=== PATIENT | male | born 1995 | race Caucasian/White ===

== ENCOUNTER 2017-12-21 04:17 | Inpatient (IN) | payer SELFPAY ==
[~2017-12-21] VITALS: Ht 162.6 cm; Wt 53.5 kg
--- NOTE | 2017-12-21 04:28 | ER Report ---
History and Physical Time Seen By MD: 04:28 Hx. of Stated Complaint: 0130 woke up with abd pain, vomiting. HPI/ROS CHIEF COMPLAINT: abdominal pain HISTORY OF PRESENT ILLNESS: Awoke at 0130 with abdominal pain and nausea. Pain is diffuse, but worse in the periumbilical and epigastric areas. Pain does not radiate. No back pain. Feels a little distended. Two episodes of vomiting tonight, felt a little better between episodes of emesis. Normal urination. History of ulcerative colitis with a total colectomy and a J-pouch. Usually multiple bowel movements daily, no bowel movement since yesterday (normally has about 5-6 a day and wakes up at least once at night). No fevers or chills. Had a cold a few weeks ago, otherwise no recent illnesses. REVIEW OF SYSTEMS: Constitutional: As above. Eyes: No discharge. ENT: No sore throat. No congestion. Cardiovascular: No chest pain. No palpitations. Respiratory: No cough. No shortness of breath. Gastrointestinal: As above. Genitourinary: No dysuria. Musculoskeletal: No back pain. No extremity pain. Skin: No rashes. Neurological: No numbness. No headache. Allergies: Coded Allergies: Sulfa (Sulfonamide Antibiotics) (Verified Adverse Reaction, Severe, hives , 12/21/17) Home Meds No Active Prescriptions or Reported Meds Reviewed Nurses Notes: Yes Hx Smoking: No Constitutional Physical Exam General Appearance: The patient is alert. No acute distress. Eyes: Pupils are equal, round. No pallor, injection or icterus. ENT: Mucous membranes are moist. Normal oral mucosa. Posterior oropharynx is normal. Respiratory: Lungs are clear to auscultation. Cardiovascular: Regular rate and rhythm. No murmurs, gallops or rubs. No edema. Gastrointestinal: Abdomen has diffuse tenderness, worse at francisca-umbilical area. While patient feels distended, I can not really appreciate any distension. Guarding, but no rebound. Hypoactive bowel sounds. Has some left CVA tenderness with percussion. Neurological: Alert and oriented x3. No focal neurologic deficits Skin: Warm and dry. Musculoskeletal: No tenderness in palpation of the thoracic and lumbar spine. DIFFERENTIAL DIAGNOSIS: After history and physical exam, differential diagnosis was considered for abdominal pain including but not limited to bowel obstruction , inflammatory disease, enteritis, gastritis and urinary tract infection. Medical Decision Making Data Points Result Diagram: 12/24/17 0526 12/24/17 0526 Laboratory Hematology Test 12/21/17 04:28 Urine Color Yellow Urine Clarity Slightly-cloudy Urine pH 8.0 pH (4.8-9.5) Urine Specific [place] 1.020 Urine Protein Negative mg/dL (NEGATIVE) Urine Glucose (UA) Negative mg/dL (NEGATIVE) Urine Ketones Negative mg/dL (NEGATIVE) Urine Blood Negative (NEGATIVE) Urine Nitrite Negative (NEGATIVE) Urine Bilirubin Negative (NEGATIVE) Urine Urobilinogen Negative mg/dL (0.2-1.9) Urine Leukocyte Esterase Negative (NEGATIVE) Urine RBC None /HPF (0-2/HPF) Urine WBC 2 /HPF (0-5/HPF) Urine Squamous Epithelial Cells Few /LPF (</=FEW) Urine Amorphous Crystals Few /HPF Urine Bacteria Negative /HPF (NONE-FEW) Urine Mucus None /HPF (NONE-FEW) Total Bilirubin 0.5 mg/dl (0.2-1.3) Aspartate Amino Transf (AST/SGOT) 34 U/L (0-35) Alanine Aminotransferase (ALT/SGPT) 31 U/L (0-56) Alkaline Phosphatase 114 U/L (0-126) Total Protein 7.2 gm/dl (6.3-8.2) Albumin 4.0 g/dl (3.5-5.0) Amylase Level 90 U/L (0-110) Lipase 82 U/L (23-300) Chemistry Test 12/21/17 04:28 Urine Color Yellow Urine Clarity Slightly-cloudy Urine pH 8.0 pH (4.8-9.5) Urine Specific [place] 1.020 Urine Protein Negative mg/dL (NEGATIVE) Urine Glucose (UA) Negative mg/dL (NEGATIVE) Urine Ketones Negative mg/dL (NEGATIVE) Urine Blood Negative (NEGATIVE) Urine Nitrite Negative (NEGATIVE) Urine Bilirubin Negative (NEGATIVE) Urine Urobilinogen Negative mg/dL (0.2-1.9) Urine Leukocyte Esterase Negative (NEGATIVE) Urine RBC None /HPF (0-2/HPF) Urine WBC 2 /HPF (0-5/HPF) Urine Squamous Epithelial Cells Few /LPF (</=FEW) Urine Amorphous Crystals Few /HPF Urine Bacteria Negative /HPF (NONE-FEW) Urine Mucus None /HPF (NONE-FEW) Total Bilirubin 0.5 mg/dl (0.2-1.3) Aspartate Amino Transf (AST/SGOT) 34 U/L (0-35) Alanine Aminotransferase (ALT/SGPT) 31 U/L (0-56) Alkaline Phosphatase 114 U/L (0-126) Total Protein 7.2 gm/dl (6.3-8.2) Albumin 4.0 g/dl (3.5-5.0) Amylase Level 90 U/L (0-110) Lipase 82 U/L (23-300) Urinalysis Test 12/21/17 04:28 Urine Color Yellow Urine Clarity Slightly-cloudy Urine pH 8.0 pH (4.8-9.5) Urine Specific [place] 1.020 Urine Protein Negative mg/dL (NEGATIVE) Urine Glucose (UA) Negative mg/dL (NEGATIVE) Urine Ketones Negative mg/dL (NEGATIVE) Urine Blood Negative (NEGATIVE) Urine Nitrite Negative (NEGATIVE) Urine Bilirubin Negative (NEGATIVE) Urine Urobilinogen Negative mg/dL (0.2-1.9) Urine Leukocyte Esterase Negative (NEGATIVE) Urine RBC None /HPF (0-2/HPF) Urine WBC 2 /HPF (0-5/HPF) Urine Squamous Epithelial Cells Few /LPF (</=FEW) Urine Amorphous Crystals Few /HPF Urine Bacteria Negative /HPF (NONE-FEW) Urine Mucus None /HPF (NONE-FEW) EKG/Imaging Imaging Exam type: ACUTE ABDOMEN SERIES 3 VIEW History: Abdominal pain, vomiting Comparison: None. Findings: The lungs are well-expanded and clear. There is no focal consolidation, pleural effusion or pneumothorax. Heart size is normal. Patient appears of had prior bowel surgery. There is a paucity of bowel gas in the right lower quadrant and pelvis with surgical suture. A few air-fluid levels are noted centrally No definite bowel obstruction, pneumatosis or free air. Air is noted overlying the stomach. 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 IMPRESSION: 1. No acute cardiopulmonary disease. 2. Postoperative changes are noted from what appears to be prior bowel surgery in the deep pelvis. There is a paucity of bowel gas in the right lower quadrant and deep pelvis but no bowel obstruction or free air. Report Dictated By: Rafita Lopez MD at 12/21/2017 5:28 AM ABDOMEN/PELVIS WITH CONTRAST HISTORY: Abdominal pain. History of colectomy for ulcerative colitis with J- pouch. COMPARISON: Acute abdominal series earlier same day. TECHNIQUE: Axial images were obtained from the lung bases through the symphysis pubis with intravenous contrast. Sagittal and coronal reformats were performed. One of the following dose optimization techniques was utilized in the performance of this exam: Automated exposure control; adjustment of the mA and/ or kV according to the patient's size; or use of an iterative reconstruction technique. Specific details can be referenced in the facility's radiology CT exam operational policy. CONTRAST: 75 mm IV Isovue-370. FINDINGS: Lower chest: Clear. Liver: There is a 4 mm too small to characterize round low attenuating lesion in segment VII (image 27) and another on image 25 in segment VIII. They are statistically likely to represent benign cysts or hemangiomas. There is ill- defined low attenuating lesions in the inferior right lobe of the liver (axial image 65 and coronal images 49 through 41, potentially focal fatty infiltration. Gallbladder/biliary: Normal. Pancreas: Normal. Spleen: Normal. Adrenals: Normal. Kidneys/ureters/bladder: Normal. GI/mesentery/peritoneal cavity: Colectomy with J-pouch. There is dilation of fluid-filled mid small bowel loops, and there is a small bowel feces sign on image 69. The transition is in the mid abdomen on image 71. Distal small bowel loops are decompressed. There is a small amount of free fluid in the leaves of the mesentery. No free air. There is rectus abdominis diastasis with small bowel loops extending into the defect. There is mild thickening of a segment of bowel in the right lower quadrant on image 88 through 92, just proximal to the anastomosis. Vessels: No aneurysm or significant atherosclerotic disease. No dissection. Nodes: Normal. Pelvis: There is small amount of free fluid, likely reactive secondary to bowel obstruction. Bones/vertebra/soft tissues: S1 is a transitional vertebra. Vertebral body heights are maintained. Alignment is normal. IMPRESSION: 1. Small bowel obstruction with transition in the mid abdomen. There is small amount free fluid in the leaves of the mesentery, likely reactive. 2. There is a loop of bowel in the right lower quadrant just proximal to the anastomosis that is thickened. This is not the site of the obstruction. Bowel wall thickening may be due to infection or inflammation. 3. Irregular low-attenuation in the inferior right lobe of the liver is most likely focal fatty infiltration. More worrisome process is unlikely in a patient of this age. These findings were discussed by phone with SUDHIR NIELSEN on 12/21/2017 6:48 AM. Report Dictated By: Shellie Sloan at 12/21/2017 6:37 AM ED Course/Re-evaluation Clinical Indication for ER IV: Hydration, IV Access ED Course Initially treated with morphine for pain and zofran for nausea. Labs and abdominal series are fairly unremarkable with mild elevation of white blood cell count. CT scan of the abdomen and pelvis was done due to continued pain and suggestion of possible bowel obstruction based on physical exam and history , and does show bowel obstruction. Discussed with the patient and with Dr. Ramirez. NG tube ordered and patient admitted. Decision to Disposition Date: Dec 21, 2017 Decision to Disposition Time: 06:58 Depart Departure Latest Vital Signs Impression: Primary Impression: Small bowel obstruction Condition: Condition Unchanged Disposition: Admitted from ER New Scripts No Active Prescriptions or Reported Meds SUDHIR NIELSEN MD Dec 21, 2017 04:28
[2017-12-21] MEDS ORDERED: ONDANSETRON 4 MG/2 ML VIAL IVP ONE ×2 (04:40→06:55)
[2017-12-21] MEDS ORDERED: MORPHINE 4 MG/ML SDV IVP ONE ×2 (04:40→06:55)
[2017-12-21] MEDS ORDERED: NS(*) 0.9% 1000 ML BAG 1,000 ML IV ONE (04:40)
[2017-12-21 04:45] LABS: PLATELET COUNT, AUTOMATED 383 K/uL (150-450)
--- NOTE | 2017-12-21 05:37 | RADIOLOGY IMAGING REPORT ---
FACILITY: [facility] PATIENT NAME: Jhonatan Nair : 1995 MR: [id number] V: [id number] EXAM DATE: ORDERING PHYSICIAN: SUDHIR NIELSEN TECHNOLOGIST: [place] [facility] [place] Patient: Jhonatan Nair : 1995 Visit/Account:[id number] Date of Sevice: 12/21/2017 Exam type: ACUTE ABDOMEN SERIES 3 VIEW History: Abdominal pain, vomiting Comparison: None. Findings: The lungs are well-expanded and clear. There is no focal consolidation, pleural effusion or pneumotho rax. Heart size is normal. Patient appears of had prior bowel surgery. There is a paucity of bowel gas in the right lower quadra nt and pelvis with surgical suture. A few air-fluid levels are noted centrally No definite bowel obst ruction, pneumatosis or free air. Air is noted overlying the stomach. 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 IMPRESSION: 1. No acute cardiopulmonary disease. 2. Postoperative changes are noted from what appears to be prior bowel surgery in the deep pelvis. Th ere is a paucity of bowel gas in the right lower quadrant and deep pelvis but no bowel obstruction or free air. Report Dictated By: Rafita Lopez MD at 12/21/2017 5:28 AM Report E-Signed By: Rafita Lopez MD at 12/21/2017 5:32 AM WSN:[id number]
[2017-12-21] MEDS ORDERED: IOPAMIDOL 76% 75 ML INFUS BTL 75 ML ONE (06:00)
--- NOTE | 2017-12-21 06:56 | RADIOLOGY IMAGING REPORT ---
FACILITY: [facility] PATIENT NAME: Jhonatan Nair : 1995 MR: [id number] V: [id number] EXAM DATE: ORDERING PHYSICIAN: SUDHIR NIELSEN TECHNOLOGIST: Location: [facility] - [place] Patient: Jhonatan Nair : 1995 Visit/Account:[id number] Date of Sevice: 12/21/2017 ABDOMEN/PELVIS WITH CONTRAST HISTORY: Abdominal pain. History of colectomy for ulcerative colitis with J-pouch. COMPARISON: Acute abdominal series earlier same day. TECHNIQUE: Axial images were obtained from the lung bases through the symphysis pubis with intravenou s contrast. Sagittal and coronal reformats were performed. One of the following dose optimization techniques was utilized in the performance of this exam: Autom ated exposure control; adjustment of the mA and/or kV according to the patient's size; or use of an i terative reconstruction technique. Specific details can be referenced in the facility's radiology CT exam operational policy. CONTRAST: 75 mm IV Isovue-370. FINDINGS: Lower chest: Clear. Liver: There is a 4 mm too small to characterize round low attenuating lesion in segment VII (image 2 7) and another on image 25 in segment VIII. They are statistically likely to represent benign cysts o r hemangiomas. There is ill-defined low attenuating lesions in the inferior right lobe of the liver ( axial image 65 and coronal images 49 through 41, potentially focal fatty infiltration. Gallbladder/biliary: Normal. Pancreas: Normal. Spleen: Normal. Adrenals: Normal. Kidneys/ureters/bladder: Normal. GI/mesentery/peritoneal cavity: Colectomy with J-pouch. There is dilation of fluid-filled mid small b owel loops, and there is a small bowel feces sign on image 69. The transition is in the mid abdomen o n image 71. Distal small bowel loops are decompressed. There is a small amount of free fluid in the l eaves of the mesentery. No free air. There is rectus abdominis diastasis with small bowel loops exten ding into the defect. There is mild thickening of a segment of bowel in the right lower quadrant on i mage 88 through 92, just proximal to the anastomosis. Vessels: No aneurysm or significant atherosclerotic disease. No dissection. Nodes: Normal. Pelvis: There is small amount of free fluid, likely reactive secondary to bowel obstruction. Bones/vertebra/soft tissues: S1 is a transitional vertebra. Vertebral body heights are maintained. Al ignment is normal. IMPRESSION: 1. Small bowel obstruction with transition in the mid abdomen. There is small amount free fluid in th e leaves of the mesentery, likely reactive. 2. There is a loop of bowel in the right lower quadrant just proximal to the anastomosis that is thic kened. This is not the site of the obstruction. Bowel wall thickening may be due to infection or infl ammation. 3. Irregular low-attenuation in the inferior right lobe of the liver is most likely focal fatty infil tration. More worrisome process is unlikely in a patient of this age. These findings were discussed by phone with SUDHIR NIELSEN on 12/21/2017 6:48 AM. Report Dictated By: Shellie Sloan at 12/21/2017 6:37 AM Report E-Signed By: Shellie Sloan at 12/21/2017 6:53 AM WSN:[id number]
[2017-12-21] MEDS ORDERED: FLUSH 10 ML SYR IVP PRN (07:05)
[2017-12-21] MEDS ORDERED: HYDROmorphone PCA 6 MG/30 ML IV PRN (07:05)
[2017-12-21] MEDS ORDERED: NALOXONE HCL 0.4 MG/ML VIAL IVP PRN (07:05)
[2017-12-21] MEDS ORDERED: PROMETHAZINE 25 MG/ML 1 ML AMP IVP PRN (07:05)
--- NOTE | 2017-12-21 07:37 | Gen Surgery History & Physical ---
History of Present Illness Chief Complaint Abdominal pain, N/V History of Present Illness 22yo male (identifies as female) presents with 1 day of abdominal pain. Was starting to feel mildly poor 2 days ago but awoke at 0100 this morning with worsening abdominal pain with N/V, emesis x1. Last BM was last night at 2000. No flatus since 0100 this morning. Has h/o UC treated with total colectomy and ileostomy in early 2015. She ended up having 6 abdominal surgeries in 2016, none prior and none since. She had total abdominal colectomy with ileostomy, followed by ex-lap for internal hernia, then completion proctectomy, then j- pouch formation with continued ileostomy, then j-pouch ileoanal anastomosis late in 2015. She developed early postop SBO managed non-operatively. No SBOs since then. History Problems: (1) History of total colectomy Status: Chronic (2) H/O ileostomy Status: Resolved (3) H/O ulcerative colitis Status: Resolved Home Meds No Active Prescriptions or Reported Meds Allergies: Coded Allergies: Sulfa (Sulfonamide Antibiotics) (Verified Adverse Reaction, Severe, hives , 12/21/17) Review of Systems All Systems Reviewed/Normal: Yes, Except as Noted Gastrointestinal: Nausea, Vomiting, Abdominal Pain Exam General Appearance: Alert, Awake, No Acute Distress, Afebrile Neuro: No Gross deficits Eyes: PERRLA GI: Other (Soft, TTP in left abdomen, no peritoneal signs. Midline incision and ileostomy site scars well healed. No palpable bulge or mass.) Extremities: Warm, Perfused Medical Decision Making Data Points Result Diagram: 12/21/17 0428 12/21/17 0428 Assessment and Plan Problems: (1) Small bowel obstruction Status: Acute Assessment & Plan: 12/21/17: Admit, NPO, IV fluids, pain control. Will place NG tube for GI decompression and start bowel rest. Will start with conservative management. If no improvement over the next 48-72 hours then may require surgical exploration to address bowel obstruction. I have explained this plan to the patient in great detail and she is agreeable with this plan. (2) History of total colectomy Status: Chronic (3) H/O ulcerative colitis Status: Resolved Condition Stable. Time Spent: < 30 min Venous Thromboembolism VTE Risk Physician Assess for VTE Risk: Yes Patient's VTE Risk: Low VTE Diagnostic Test 2 Days Prior to Admit: No Antithrombotics Is Pt On Any Antithrombotics?: Yes DAPHNEY BURGESS MD Dec 21, 2017 07:37
--- NOTE | 2017-12-21 08:08 | RADIOLOGY IMAGING REPORT ---
FACILITY: [facility] PATIENT NAME: Jhonatan Nair : 1995 MR: [id number] V: [id number] EXAM DATE: ORDERING PHYSICIAN: SUDHIR NIELSEN TECHNOLOGIST: Location: [facility] Patient: Jhonatan Nair : 1995 Visit/Account:[id number] Date of Sevice: 12/21/2017 CHEST SINGLE AP 12/21/2017 06:55 hours. HISTORY: NG tube placement. COMPARISON: Abdominal series including the chest performed earlier same day. CT abdomen and pelvis ea rlier same day. TECHNIQUE: Portable AP view of the chest. FINDINGS: Tubes/lines/hardware: NG tube terminates in the stomach. Pulmonary: Lungs are clear. There is no pneumothorax or pleural effusion. Cardiomediastinal: Cardiac and mediastinal silhouettes are within normal limits. Bones/soft tissues: No acute osseous abnormality. The visible abdomen is normal. There is contrast wi thin the renal collecting systems, from recent CT. IMPRESSION: 1. NG tube terminates within the stomach. Report Dictated By: Shellie Sloan at 12/21/2017 8:02 AM Report E-Signed By: Shellie Sloan at 12/21/2017 8:03 AM WSN:[id number]
[2017-12-21 08:14] VITALS: BP 101/67
[2017-12-21] MEDS: NS(*) 0.9% 1000 ML BAG 1,000 ML IV PRN ×2 (08:33→16:40)
[2017-12-21] MEDS: ENOXAPARIN 40 MG/0.4ML SYR SC SCH (08:34)
[2017-12-21] MEDS: PANTOPRAZOLE SOD 40 MG IV VIAL IVP SCH (08:34)
[2017-12-21] MEDS: ACETAMINOPHEN(*)1000 MG/100 ML 100 ML IVPB SCH ×2 (11:28→18:10)
[2017-12-21 11:32] VITALS: BP 106/74
[2017-12-21] MEDS: ONDANSETRON 4 MG/2 ML VIAL IVP PRN (11:37)
--- NOTE | 2017-12-21 13:39 | Medical Nutrition Therapy ---
Nutrition Anthropometrics Height (Inches): 64.00 Height (Calculated Centimeters: 162.260755 Weight (Pounds): 118 Weight (Calculated Kilograms): 53.524 Raymond Nutrition Score: Very Poor Raymond Nutrition Risk Score: 18 Dietary Referral Nutrition Risk Factors: Nutrition Risk Comment: Nutrition/Food History Good Skipped Meals: No Breakfast: 3 pieces turkey farias Lunch: leftovers or salad Dinner: salad with turkey burger Snacks: fruit or cheesestick with triscuts, drinks 32oz water, coffee w cream& sugar Nutritional Diagnosis Nutritional Risk Acuity 1: GI Obstruction Past Medical History: total colectomy and ulcerative collitis Nutritional Acuity: 1-High Nutrition Diagnosis: Altered GI Function Nutrition Etiology: Discomfort post Eating Nutrition Problem/Etiology/Sym: abdominal pain with nausea and vomiting and NGT for decompression on bowel rest. Energy Requirement: 1390 (kcal/day (26 kcal/kg)) Protein Requirement: 48 (g/day (0.9 g/kg)) Fluid Requirement: 1605 (mL/day (30 mL/kg)) Diet Type: NPO (Nothing by Mouth) Nutrition Intervention: Incr diet as tolerated Diet Comment To RSA: PT PREFERRS TO BE REFERENCED A FEMALE, PREFERRED NAME "CHERISE" Nutrition Monitoring & Eval Nutrition Goals: diet advancement as tolerated Nutrition Follow-Up: Good Intake RD Patient Assessment Time: [address] Assessment Type: RD Assessment Patient Nutrition Acuity: 1-High Follow Up Date: Dec 23, 2017 Nutritional Comment: 12/21 Pt admitted for small bowel obstruction currently NPO on bowel rest with an NGT for decompression. Pt has a past medical history significant for a total colectomy with ulcerative colitis. Per physician note, pt experiencing abdominal pain with nausea and vomiting. Cuff Knitter able to obtain pt diet recall and preferences but pt visibly not feeling well during discussion. Pt ammenable to recieving diet education when appropriate when pt path progresses to either decompression or sugrery. Monitor appropriatness for diet education and diet advancement. JESUS [place] Dec 21, 2017 13:02
[2017-12-21 16:28] VITALS: BP 102/70
[2017-12-21 19:10] VITALS: BP 98/58
[2017-12-21 22:49] VITALS: BP 93/54
[2017-12-22] MEDS: ACETAMINOPHEN(*)1000 MG/100 ML 100 ML IVPB SCH ×5 (00:23→23:31)
[2017-12-22] MEDS: NS(*) 0.9% 1000 ML BAG 1,000 ML IV PRN ×3 (00:23→22:32)
[2017-12-22 05:54] VITALS: BP 88/59
[2017-12-22 06:03] LABS: PLATELET COUNT, AUTOMATED 320 K/uL (150-450)
--- NOTE | 2017-12-22 06:30 | RADIOLOGY IMAGING REPORT ---
FACILITY: [facility] - [place] PATIENT NAME: Jhonatan Nair : 1995 MR: [id number] V: [id number] EXAM DATE: ORDERING PHYSICIAN: DAPHNEY BURGESS TECHNOLOGIST: Location: [facility] [place] Patient: Jhonatan Nair : 1995 Visit/Account:[id number] Date of Sevice: 12/22/2017 KUB SINGLE VIEW ABDOMEN HISTORY: Small bowel obstruction. COMPARISON: CT abdomen and pelvis abdominal series both from 12/21/2017. FINDINGS: A single AP supine view of the abdomen was obtained. The NG tube terminates within the stomach. Distrubution of bowel gas is normal with bowel in all four quadrants as well as centrally. There are dilated air-filled small bowel loops that were filled with fluid on the previous CT. No free air. There is contrast within the bladder related to prior CT. IMPRESSION: 1. Persistent small bowel obstruction. Report Dictated By: Shellie Sloan at 12/22/2017 6:24 AM Report E-Signed By: Shellie Sloan at 12/22/2017 6:26 AM WSN:[id number]
--- NOTE | 2017-12-22 06:50 | General Surgery Progress Note ---
Subjective Progress Notes Subjective Less pain than yesterday but still bloated and no flatus or BM. Physical Exam Vital Signs Date Time Temp Pulse Resp B/P (MAP) Pulse Ox O2 Delivery O2 Flow Rate FiO2 12/22/17 05:58 96 12/22/17 05:54 98.5 68 16 88/59 (69) Nasal Cannula 2.0 General Appearance: Alert, Awake, No Acute Distress, Afebrile GI: Other (Soft, diffuse TTP, distended, tympanic) Extremities: Warm, Perfused Result Diagram: 12/22/17 0511 12/22/17 0511 Assessment and Plan Problems: (1) Small bowel obstruction Status: Acute Assessment & Plan: 12/21/17: Admit, NPO, IV fluids, pain control. Will place NG tube for GI decompression and start bowel rest. Will start with conservative management. If no improvement over the next 48-72 hours then may require surgical exploration to address bowel obstruction. I have explained this plan to the patient in great detail and she is agreeable with this plan. 12/22/17: Continued SBO after almost 24 hours of conservative management. Will continue conservative management today with NG tube decompression, bowel rest, IV fluids, pain and nausea control. If no better by tomorrow, may get gastrograffin SBFT tomorrow. (2) History of total colectomy Status: Chronic (3) H/O ulcerative colitis Status: Resolved Condition Stable. Time Spent: < 30 min Exam Sepsis Risk: No Definite Risk DAPHNEY BURGESS MD Dec 22, 2017 06:50
[2017-12-22 07:56] VITALS: BP 96/68
[2017-12-22] MEDS: PANTOPRAZOLE SOD 40 MG IV VIAL IVP SCH (09:25)
[2017-12-22] MEDS: ENOXAPARIN 40 MG/0.4ML SYR SC SCH (09:28)
[2017-12-22] MEDS: ONDANSETRON 4 MG/2 ML VIAL IVP PRN ×2 (11:02→15:45)
[2017-12-22 11:06] VITALS: BP 101/71
[2017-12-22 14:42] VITALS: BP 98/66
[2017-12-22 21:17] VITALS: BP 95/64
[2017-12-22 23:26] VITALS: BP 90/53
[2017-12-23] VITALS (7 sets, daily range): BP systolic 89–103; BP diastolic 46–69
[2017-12-23] MEDS: ACETAMINOPHEN(*)1000 MG/100 ML 100 ML IVPB SCH ×3 (05:42→17:52)
[2017-12-23 06:07] LABS: PLATELET COUNT, AUTOMATED 285 K/uL (150-450)
--- NOTE | 2017-12-23 06:21 | General Surgery Progress Note ---
Subjective Progress Notes Subjective Last night was reporting flatus and several BMs with no further abdominal pain or bloating. I started her on clear diet. This morning, still feeling well but a little more bloated. No N/V. Still passing flatus. Physical Exam Vital Signs Date Time Temp Pulse Resp B/P (MAP) Pulse Ox O2 Delivery O2 Flow Rate FiO2 12/23/17 05:45 14 94 12/23/17 03:20 97.7 55 96/59 (71) Room Air 12/22/17 07:56 2.0 General Appearance: Alert, Awake, No Acute Distress, Afebrile GI: Other (Soft, mild diffuse TTP, mildly distended.) Extremities: Warm, Perfused Result Diagram: 12/23/17 0541 12/22/17 0511 Assessment and Plan Problems: (1) Small bowel obstruction Status: Acute Assessment & Plan: 12/21/17: Admit, NPO, IV fluids, pain control. Will place NG tube for GI decompression and start bowel rest. Will start with conservative management. If no improvement over the next 48-72 hours then may require surgical exploration to address bowel obstruction. I have explained this plan to the patient in great detail and she is agreeable with this plan. 12/22/17: Continued SBO after almost 24 hours of conservative management. Will continue conservative management today with NG tube decompression, bowel rest, IV fluids, pain and nausea control. If no better by tomorrow, may get gastrograffin SBFT tomorrow. 12/23/17: Passing flatus, had 3 BMs yesterday but a little more bloated today and KUB still with markedly dilated loops of small bowel. Will get water- soluble SBFT today. (2) History of total colectomy Status: Chronic (3) H/O ulcerative colitis Status: Resolved Condition Stable. Time Spent: < 30 min Exam Sepsis Risk: No Definite Risk DAPHNEY BURGESS MD Dec 23, 2017 06:21
--- NOTE | 2017-12-23 06:47 | RADIOLOGY IMAGING REPORT ---
FACILITY: [facility] PATIENT NAME: Jhonatan Nair : 1995 MR: [id number] V: [id number] EXAM DATE: ORDERING PHYSICIAN: DAPHNEY BURGESS TECHNOLOGIST: Location: [facility] Patient: Jhonatan Nair : 1995 Visit/Account:[id number] Date of Sevice: 12/23/2017 KUB SINGLE VIEW ABDOMEN HISTORY: Small bowel obstruction. COMPARISON: 12/22/2017 and 12/21/2017. FINDINGS: Supine views of the abdomen were obtained. The NG tube has been removed. Distrubution of bowel gas is normal with bowel in all four quadrants as well as centrally. There are persistently dilated small bowel loops. Some of the more proximal loops are less distended, but some of the distal loops are more distended. No free air. There are surgical sutures in the pelvis. IMPRESSION: 1. Persistent small bowel obstruction. Report Dictated By: Shellie Sloan at 12/23/2017 6:40 AM Report E-Signed By: Shellie Sloan at 12/23/2017 6:42 AM WSN:[id number]
[2017-12-23] MEDS ORDERED: DIATRIZOATE MEGL/DIATRIZOA SOD 120 ML SOLN PO ONE (09:31)
[2017-12-23] MEDS: ONDANSETRON 4 MG/2 ML VIAL IVP PRN (09:48)
--- NOTE | 2017-12-23 11:18 | Medical Nutrition Therapy ---
Nutrition Anthropometrics Height (Inches): 64.00 Height (Calculated Centimeters: 162.941229 Weight (Pounds): 118 Weight (Calculated Kilograms): 53.524 Raymond Nutrition Score: Probably Inadequate Raymond Nutrition Risk Score: 19 Dietary Referral Nutrition Risk Factors: Nutrition Risk Comment: Nutritional Diagnosis Nutritional Risk Acuity 1: GI Obstruction Past Medical History: total colectomy and ulcerative collitis Nutritional Acuity: 1-High Nutrition Diagnosis: Altered GI Function Nutrition Etiology: Discomfort post Eating Nutrition Problem/Etiology/Sym: abdominal pain with nausea and vomiting and NGT for decompression on bowel rest. Energy Requirement: 1390 (kcal/day (26 kcal/kg)) Protein Requirement: 48 (g/day (0.9 g/kg)) Fluid Requirement: 1605 (mL/day (30 mL/kg)) Diet Type: NPO (Nothing by Mouth), Clear Liquids Nutrition Intervention: Incr diet as tolerated Diet Comment To RSA: PT PREFERRS TO BE REFERENCED A FEMALE, PREFERRED NAME "CHERISE". OFFER CLEAR NUTRITION SUPPLEMENT. Nutrition Monitoring & Eval RD Patient Assessment Time: [address] Assessment Type: RD Re-Assessment Patient Nutrition Acuity: 1-High Follow Up Date: Dec 25, 2017 Nutritional Comment: 12/21 Pt admitted for small bowel obstruction currently NPO on bowel rest with an NGT for decompression. Pt has a past medical history significant for a total colectomy with ulcerative colitis. Per physician note, pt experiencing abdominal pain with nausea and vomiting. Data Management Specialist able to obtain pt diet recall and preferences but pt visibly not feeling well during discussion. Pt ammenable to recieving diet education when appropriate when pt path progresses to either decompression or sugrery. Monitor appropriatness for diet education and diet advancement. 12/23 Pt diet has advanced to clear liquid on 12/22. Per physician note, pt experiencing some bloating. Pt has no intakes recorded and was previously NPO since admit. HGB 13.2, HCT 38.4. Continue to mointor pt intake, tolerance and diet advancement. J[place] Dec 23, 2017 10:07
[2017-12-23] MEDS: PANTOPRAZOLE SOD 40 MG IV VIAL IVP SCH (12:38)
[2017-12-23] MEDS: ENOXAPARIN 40 MG/0.4ML SYR SC SCH (12:43)
--- NOTE | 2017-12-23 16:09 | RADIOLOGY IMAGING REPORT ---
[place] [facility] [place]IENT NAME: Jhonatan Nair : 1995 MR: [id number] V: [id number] EXAM DATE: [id number] ORDERING PHYSICIAN: DAPHNEY BURGESS TECHNOLOGIST: Location: [facility] Patient: Jhonatan Nair : 1995 Visit/Account:[id number] Date of Sevice: 12/23/2017 Exam type: SMALL BOWEL SERIES History: SBO; water soluble contrast only please Comparison: CT abdomen and pelvis December 21, 2017. Findings: MA wastewater operator film of abdomen reveals numerous loops of distended small bowel throughout the abdomen measu ring up to 6.8 cm in diameter. The patient received a dilute Gastrografin suspension to swallow. Gastrografin was followed througho ut the small bowel to the rectum. The patient is status post colectomy. The proximal jejunum appear ed markedly dilated on the one hour and 15 minute image measuring up to 4.9 cm in diameter. This dil atation subsequently resolved on the later images. There is a persistently dilated loop of bowel in the right lower abdomen measuring up to 6.8 cm in diameter similar to the wastewater operator film. The Gastrograf in passed to the distal small bowel after five hours. The dilated loop of small bowel right lower qu adrant measured 4.5 cm at that time IMPRESSION: 1. Findings are consistent with small bowel obstruction. The Gastrografin passed through the distal small bowel after five hours. The largest loop of dilated bowel is in the right lower quadrant alth ough on the final images measured 4.5 cm in diameter as opposed to 6.8 cm at the start of the examina tion. Report Dictated By: Kay Serna MD at 12/23/2017 4:01 PM Report E-Signed By: Kay Serna MD at 12/23/2017 4:05 PM WSN:[email or web address]
[2017-12-24] MEDS: ACETAMINOPHEN(*)1000 MG/100 ML 100 ML IVPB SCH ×2 (02:45→06:12)
[2017-12-24 03:24] VITALS: BP 100/50
[2017-12-24] MEDS: NS(*) 0.9% 1000 ML BAG 1,000 ML IV PRN (05:19)
--- NOTE | 2017-12-24 05:28 | RADIOLOGY IMAGING REPORT ---
[place] [facility] [place] NAME: Jhonatan Nair : 1995 MR: [id number] V: [id number] EXAM DATE: ORDERING PHYSICIAN: DAPHNEY BURGESS TECHNOLOGIST: Location: [facility] [place] Patient: Jhonatan Nair : 1995 Visit/Account:[id number] Date of Sevice: 12/24/2017 KUB SINGLE VIEW ABDOMEN HISTORY: Small bowel obstruction. COMPARISON: 12/23/2017 and studies dating to 12/21/2017. FINDINGS: A single AP supine view of the abdomen was obtained. Distrubution of bowel gas is normal with bowel in all four quadrants as well as centrally. There are dilated small bowel loops throughout the abdomen. The small bowel loops in the upper abdomen have dec reased in size. There are numerous surgical sutures in the pelvis. No free air. IMPRESSION: 1. Persistently dilated small bowel loops, although small bowel loops in the upper abdomen have decre ased in size, which may be due to improving small bowel obstruction. Report Dictated By: Shellie Sloan at 12/24/2017 5:22 AM Report E-Signed By: Shellie Sloan at 12/24/2017 5:24 AM WSN:[id number]
[2017-12-24 07:12] LABS: PLATELET COUNT, AUTOMATED 295 K/uL (150-450)
--- NOTE | 2017-12-24 08:06 | General Surgery Progress Note ---
Subjective Progress Notes Subjective Multiple BM, SBFT to distall small bowel (pouch) at 5 hours. Tolerating regular diet. Physical Exam Vital Signs Date Time Temp Pulse Resp B/P (MAP) Pulse Ox O2 Delivery O2 Flow Rate FiO2 12/24/17 05:09 14 90 12/24/17 03:24 98.0 58 100/50 (67) 12/23/17 22:56 Room Air 12/22/17 07:56 2.0 General Appearance: Alert, Awake ENT: Normal, Moist Mucous Membranes Cardiovascular: Normal Rhythm & Peripheral Pulses Respiratory: No Respiratory Distress GI: Soft and Non-Tender Extremities: Soft and Non Tender Integumentary: Skin Intact without Lesion / Mass Psych: Alert & Oriented X3, Appropriate Mood & Affect Result Diagram: 12/24/1752512/24/17525 Assessment and Plan Problems: (1) Small bowel obstruction Status: Acute Assessment & Plan: 12/21/17: Admit, NPO, IV fluids, pain control. Will place NG tube for GI decompression and start bowel rest. Will start with conservative management. If no improvement over the next 48-72 hours then may require surgical exploration to address bowel obstruction. I have explained this plan to the patient in great detail and she is agreeable with this plan. 12/22/17: Continued SBO after almost 24 hours of conservative management. Will continue conservative management today with NG tube decompression, bowel rest, IV fluids, pain and nausea control. If no better by tomorrow, may get gastrograffin SBFT tomorrow. 12/23/17: Passing flatus, had 3 BMs yesterday but a little more bloated today and KUB still with markedly dilated loops of small bowel. Will get water- soluble SBFT today. 12/24/17: Multiple BM. Feeling better, denies pain, denies feeling bloated. Tolerated diet last night. Breakfast this AM, d/c to home if tolerates. (2) History of total colectomy Status: Chronic (3) H/O ulcerative colitis Status: Resolved Exam Sepsis Risk: No Definite Risk SIVA CHAPA MD Dec 24, 2017 08:06
[2017-12-24] MEDS: PANTOPRAZOLE SOD 40 MG IV VIAL IVP SCH (09:00)
[2017-12-24] MEDS: ENOXAPARIN 40 MG/0.4ML SYR SC SCH (09:00)
[2017-12-24 09:16] VITALS: BP 103/81
== END 2017-12-24 11:40 | disposition home or self-care (01) | DRG 390 ==
LOC: ER 04:19 → MED 07:06
PROVIDERS: ADMIT Surgery; ATTEND Surgery
DX: K56.609 Unspecified intestinal obstruction, unspecified as to partial versus complete obstruction (principal); Z88.2 Allergy status to sulfonamides
CPT/HCPCS: 36415; 71045; 74018; 74022; 74177; 74250; 81001; 82040; 82150; 82247; 82310; 82374; 82435; 82565; 82947; 83690; 84075; 84132; 84155; 84295; 84450; 84460; 84520; 85025; 99285; C9113; J0131; J1170; J1650; J2270; J2405; J2550; J7030; Q9967